=== PATIENT | male | born 1995 | race Caucasian/White ===

== ENCOUNTER 2021-01-30 10:30 | Emergency (ER) | payer OTHER ==
[~2021-01-30] VITALS: Ht 177.8 cm; Wt 59.0 kg
--- NOTE | 2021-01-30 10:42 | NUR ---
Dr Wilcox at the bedside for MSE.
[2021-01-30] MEDS ORDERED: EPINEPHRINE 1 MG/1 ML AMP SQ ONE (10:45)
[2021-01-30] MEDS ORDERED: EPINEPHRINE 1 MG/1 ML AMP ONE (10:54)
--- NOTE | 2021-01-30 11:30 | NUR ---
Lip swelling has not decreased or increased. Pt is resting comfortably in bed.
[2021-01-30] MEDS ORDERED: CLIN300C12 PO (11:44)
[2021-01-30] MEDS ORDERED: CLINDAMYCIN HCL 150 MG CAPSULE PO ONE (11:45)
--- NOTE | 2021-01-30 11:59 | NUR ---
Patient discharged to home in stable condition. Written and verbal after care instructions given. Patient verbalizes understanding of instructions. Stressed follow up or return to ER for worsening s/s.
[2021-01-30 12:00] VITALS: BP 121/65
== END 2021-01-30 12:01 | disposition home or self-care (01) ==
LOC: ER 10:34
DX: L08.9 Local infection of the skin and subcutaneous tissue, unspecified (principal); S00.511A Abrasion of lip, initial encounter; X58.XXXA Exposure to other specified factors, initial encounter; Y92.89 Other specified places as the place of occurrence of the external cause
CPT/HCPCS: 96372; 99283; J0171; A4663